=== PATIENT | male | born 1985 | race Caucasian/White ===

== ENCOUNTER 2019-04-01 14:41 | Observation (INO) ==
[2019-04-01] MEDS ORDERED: ZOFRAN INJ 4 MG VIAL IVP PRN (15:39)
[2019-04-01 16:25] VITALS: BMI 34.4
[2019-04-01 16:33] LABS: BASOPHILS # (AUTO) 0.1 X10^3/uL (0.0-0.1); BASOPHILS % (AUTO) 0.7 % (0.2-1.0); EOSINOPHILS # (AUTO) 0.1 x10^3/uL (0.0-0.2); EOSINOPHILS % (AUTO) 1.6 % (0.9-2.9); HEMATOCRIT 43.5 % (42.0-54.0); HEMOGLOBIN 15.2 g/dL (13.5-18.0); LYMPHOCYTES # (AUTO) 2.1 X10^3/uL (1.3-2.9); LYMPHOCYTES % (AUTO) 26.2 % (21.0-51.0); MEAN CORPUSCULAR HEMOGLOBIN 32.7 pg (27.0-34.0); MEAN CORPUSCULAR VOLUME 93.5 fL (80.0-100.0); MONOCYTES # (AUTO) 0.5 x10^3/uL (0.3-0.8); MONOCYTES % (AUTO) 6.2 % (0.0-13.0); NEUTROPHILS # (AUTO) 5.3 x10^3/uL (2.2-4.8); NEUTROPHILS % (AUTO) 65.3 % (42.0-75.0); PLATELET COUNT 304 X10^3/uL (150.0-450.0); RED BLOOD COUNT 4.66 X10^6/uL (4.7-6.0); RED CELL DISTRIBUTION WIDTH 13.3 % (11.6-16.5); WHITE BLOOD COUNT 8.1 X10^3/uL (3.6-10.0)
[2019-04-01 16:45] LABS: ALANINE AMINOTRANSFERASE 57 Units/L (12-78); ALBUMIN 4.1 g/dL (3.4-5.0); ALKALINE PHOSPHATASE 142 Units/L (46-116); AMYLASE 30 Units/L (25-115); ASPARTATE AMINO TRANSFERASE 21 Units/L (15-37); BLOOD UREA NITROGEN 11 mg/dL (7-18); CARBON DIOXIDE 29.7 mmol/L (21-32); CHLORIDE 98 mmol/L (98-107); CREATININE 1.37 mg/dL (0.70-1.30); LIPASE 107 Units/L (73-393); SODIUM 136 mmol/L (136-145); TOTAL PROTEIN 8.4 g/dL (6.4-8.2); eGFR NON BLACK RACES > 60 (>60)
[2019-04-01] MEDS: NS 1000 ML 1,000 ML IV SCH (17:01)
[2019-04-01] MEDS: PROTONIX INJ 40 MG VIAL IVP SCH (17:02)
[2019-04-01 17:59] LABS: BILIRUBIN,URINE NEGATIVE (NEGATIVE); BLOOD/HEMOGLOBIN,URINE 1+ (NEGATIVE); GLUCOSE, URINE NEGATIVE (NEGATIVE); KETONES,URINE NEGATIVE (NEGATIVE); LEUKOCYTE ESTERASE ,URINE NEGATIVE (NEGATIVE); NITRITES,URINE NEGATIVE (NEGATIVE); PROTEIN,URINE NEGATIVE (NEGATIVE); UROBILINOGEN,URINE NORMAL (NORMAL)
[2019-04-01 18:29] LABS: APPEARANCE,URINE CLEAR (CLEAR); BACTERIA,URINE NEGATIVE /HPF (NEGATIVE); COLOR,URINE YELLOW (YELLOW); RBC,URINE 0-2 /HPF (0-3); SQUAMOUS EPITHELIAL CELL,UR RARE /HPF (NEGATIVE)
--- NOTE | 2019-04-01 18:58 | DR.H&P ---
H&P - History & Physical for Day of: H&P Date: 04/01/19 - Chief Complaint Chief Complaint: RIGHT LOWER ABDOMINAL PAIN, N/V - History of Present Illness History of Present Illness: PT IS 34 WM DIRECT ADMIT FROM DR LINK OFFICE AFTER PRESENTING WITH CO RIGHT MID TO LOWER ABDOMINAL TENDERNESS, REBOUND TENDERNESS ON EXAM. PT WAS SEEN IN ER LAST WEEKEND WITH CO SUDDEN ONSET OF N/V AND PAIN IN CHEST. PT HAD CE AND EKG WITHOUT ACUTE FINDINGS. PT NOTED TO BE DEHYDRATION WITH ELEVATED CREAT LEVEL. PT NEGATIVE FOR UTI ON UA IN OFFICE. PT HAS PMH OF HTN. PT CP IN OFFICE 140/100. PT ADMITTED FOR TREATMENT OF ACUTE ABDOMINAL PAIN, DEHYDRATION, BP CONTROL - Past Medical History Past Medical History: Hypertension - Family History Family Medical History: Hypertension - Social History Does patient currently use any type of tobacco product: Yes (VAPES) Have you used tobacco products in the last 12 months: Yes Type of Tobacco Use: Cigarettes How many years tobacco product used: 10 Does any household member use tobacco: No Alcohol Use: Occasionally Drug Use: None - Medications Home Medications: No Known Drug Allergies Allergy (Verified 03/29/19 22:58) CONTINUE taking the following medications lisinopril 40 mg PO DAILY 04/01/19 [History] - Review of Systems Constitutional: Fever, Weakness Eyes: No Symptoms Reported ENT: No Symptoms Reported Respiratory: No Symptoms Reported Cardiovascular: No Symptoms Reported Gastrointestinal: Nausea, Vomiting, Abdominal Pain Genitourinary: denies: Frequency, Incontinence Musculoskeletal: No Symptoms Reported Skin: No Symptoms Reported Neurological: No Symptoms Reported - Physical Exam Vital Signs: Temperature 98.0 F Pulse Rate [Left Radial] 98 Respiratory Rate 20 Blood Pressure [Right Arm] 137/92 Blood Pressure [Left Arm] 110/71 Blood Pressure 110/71 O2 Sat by Pulse Oximetry 97 Oriented: Normal Ear: Normal Nose: Normal Throat: Normal, Dry Respiratory: Clear Throughout Cardiovascular: Normal : Normal Auscultation: Bowel Sounds: Normal Palpation: Spleen Enlarged Tenderness: RUQ, RLQ, Periumbilical Skin: Decreased Turgur Musculoskeletal: Normal Psychiatric: Anxiety Affect: Anxious Speech Pattern: Clear, Appropriate - Assessment/Plan (1) Abdominal pain Status: Acute Plan: ADMIT, IV HYDRATION. PAIN AND NAUSEA CONTROL. AMYLASE AND LIPASE. UA ON ADMISSION, CT ABD PELVIS WITH CONTRAST. PPI THERAPY, REPEAT AM LABS (2) Dehydration Status: Acute (3) Hypertension Status: Acute (4) Elevated liver enzymes Status: Acute - Allergies Allergies/Adverse Reactions: Allergies Allergy/AdvReac Type Severity Reaction Status Date / Time No Known Drug Allergies Allergy Verified 03/29/19 22:58
[2019-04-01] MEDS ORDERED: NORCO 5/325 MG TAB PO PRN (18:59)
[2019-04-01] MEDS ORDERED: NS 250 ML IV 250 ML IV PRN (20:02)
[2019-04-01] MEDS ORDERED: NS 250 ML IV 250 ML IV ONE (20:06)
[2019-04-01] MEDS: ZOSYN VIAL 3.375 GRAMS 3.375 G in NS 100 ML IV + SPIKE MINIBAG* 100 ML IV SCH ×2 (20:08→21:52)
[2019-04-02] MEDS: ZOSYN VIAL 3.375 GRAMS 3.375 G in NS 100 ML IV + SPIKE MINIBAG* 100 ML IV SCH ×3 (05:06→21:02)
[2019-04-02] MEDS: NS 1000 ML 1,000 ML IV SCH (06:02)
[2019-04-02] MEDS: PROTONIX INJ 40 MG VIAL IVP SCH (09:31)
[2019-04-02] MEDS: ZESTRIL TAB 40 MG PO SCH (09:53)
--- NOTE | 2019-04-02 11:02 | CT ---
HISTORYABD PAINSTUDYCT ABDOMEN/PELVIS WITH CONCOMPARISONNoneTECHNIQUEMultiple axial images of the abdomen and pelvis were obtained from the lung bases to the pubic symphysis following the administration of IV contrast. Dose reduction techniques including Automated Exposure Control (AEC) and adjustment of mA and kV were utilized.FINDINGSThe visualized portions of the lung bases are unremarkable .The liver and spleen display no abnormalities.Gallbladder appears normal. No biliary ductal dilation.No pancreatic abnormality is seen.The adrenal glands appear normal.No hydronephrosis or renal abnormality is seen. Ureters and bladder appear normal.No bowel abnormalities are seen. Mild periappendiceal inflammation is seen and appendix is mildly prominent measuring 9 millimeters in diameter. Findings suggest acute appendicitis.No abnormalities are seen of the reproductive organs.Abdominal aorta is normal in size.Shotty reactive mesenteric and retroperitoneal lymph nodes. Small likely reactive pelvic lymph nodes.No free intraperitoneal air or fluid is seen.No acute bony abnormality is seen. Small umbilical hernia containing fat. Mild fatty distention of the left inguinal canal.IMPRESSIONLikely mild acute appendicitis changes in the correct clinical setting. Correlation with region of abdominal pain is recommended.Electronically signed by: Carlo Campos (Apr 02, 2019 11:00:52)
[2019-04-02] MEDS ORDERED: FENTANYL INJ 250 mcg ONE (13:17)
[2019-04-02] MEDS ORDERED: BACTROBAN TOPICAL OINT ONE (13:59)
[2019-04-02] MEDS ORDERED: ANCEF 1 GRAM IV PREMIX* 2 G/100 ML BAG IV ONE (14:02)
[2019-04-02] MEDS ORDERED: REGLAN INJ 10 MG VIAL IVP PRN (14:41)
[2019-04-02] MEDS ORDERED: PHENERGAN INJ 25 MG IM PRN (14:41)
[2019-04-02] MEDS ORDERED: BENADRYL INJ 50 MG VIAL IVP PRN (14:41)
[2019-04-02] MEDS ORDERED: ZOFRAN INJ 4 MG VIAL IVP PRN (14:41)
[2019-04-02] MEDS ORDERED: DILAUDID INJ IVP PRN ×2 (14:41→14:46)
[2019-04-02] MEDS: D5 1/2 NS 1000 ML 1,000 ML IV SCH ×2 (14:54→22:01)
[2019-04-02] MEDS ORDERED: DILAUDID INJ ONE (14:55)
[2019-04-02] MEDS ORDERED: SUPRANE ONE (14:56)
[2019-04-02] MEDS ORDERED: QUELICIN (OR ANECTINE) ONE (14:56)
[2019-04-02] MEDS ORDERED: ROBINUL ONE (14:56)
[2019-04-02] MEDS ORDERED: NORCURON INJ 10 MG VIAL ONE (14:56)
[2019-04-02] MEDS ORDERED: ZOFRAN INJ 4 MG VIAL ONE (14:56)
[2019-04-02] MEDS ORDERED: DIPRIVAN VIAL ONE (14:56)
[2019-04-02] MEDS ORDERED: VERSED ONE (14:56)
[2019-04-02] MEDS ORDERED: TORADOL 30 MG VIAL ONE (14:56)
[2019-04-02] MEDS: MORPHINE SULFATE INJ 2 MG INJ IVP PRN (19:46)
[2019-04-03] MEDS: MORPHINE SULFATE INJ 2 MG INJ IVP PRN (01:19)
[2019-04-03] MEDS: ZOSYN VIAL 3.375 GRAMS 3.375 G in NS 100 ML IV + SPIKE MINIBAG* 100 ML IV SCH (05:05)
[2019-04-03] MEDS: D5 1/2 NS 1000 ML 1,000 ML IV SCH (06:02)
[2019-04-03 06:55] LABS: BASOPHILS % (AUTO) 0.8 % (0.2-1.0); EOSINOPHILS # (AUTO) 0.2 x10^3/uL (0.0-0.2); HEMATOCRIT 39.6 % (42.0-54.0); HEMOGLOBIN 13.6 g/dL (13.5-18.0); LYMPHOCYTES # (AUTO) 1.4 X10^3/uL (1.3-2.9); LYMPHOCYTES % (AUTO) 23.1 % (21.0-51.0); MEAN CORPUSCULAR HEMOGLOBIN 32.4 pg (27.0-34.0); MEAN CORPUSCULAR HGB CONC 34.2 g/dL (33.0-35.0); MEAN CORPUSCULAR VOLUME 94.6 fL (80.0-100.0); MEAN PLATELET VOLUME 7.3 fL (7.4-11.0); MONOCYTES # (AUTO) 0.4 x10^3/uL (0.3-0.8); MONOCYTES % (AUTO) 6.7 % (0.0-13.0); NEUTROPHILS # (AUTO) 3.9 x10^3/uL (2.2-4.8); NEUTROPHILS % (AUTO) 66.4 % (42.0-75.0); PLATELET COUNT 259 X10^3/uL (150.0-450.0); RED BLOOD COUNT 4.19 X10^6/uL (4.7-6.0); RED CELL DISTRIBUTION WIDTH 13.1 % (11.6-16.5); WHITE BLOOD COUNT 5.9 X10^3/uL (3.6-10.0)
[2019-04-03 08:24] VITALS: BP 97/52
[2019-04-03 09:05] LABS: ALANINE AMINOTRANSFERASE 69 Units/L (12-78); ALBUMIN 3.2 g/dL (3.4-5.0); ALKALINE PHOSPHATASE 118 Units/L (46-116); ASPARTATE AMINO TRANSFERASE 39 Units/L (15-37); BLOOD UREA NITROGEN 8 mg/dL (7-18); CALCIUM 8.4 mg/dL (8.5-10.1); CHLORIDE 103 mmol/L (98-107); CREATININE 1.28 mg/dL (0.70-1.30); SODIUM 137 mmol/L (136-145); TOTAL PROTEIN 6.3 g/dL (6.4-8.2); eGFR NON BLACK RACES > 60 (>60)
[2019-04-03] MEDS: ZESTRIL TAB 40 MG PO SCH (09:49)
[2019-04-03] MEDS: PROTONIX INJ 40 MG VIAL IVP SCH (09:50)
== END 2019-04-03 11:55 | disposition home or self-care (01) ==
LOC: MED/SURG
PROVIDERS: ADMIT Internal Medicine; ATTEND Internal Medicine
PROC: APPYLAP (ICD-10-PCS; 2019-04-02 13:45)
DX: E86.0 Dehydration; R11.2 Nausea with vomiting, unspecified; R94.4 Abnormal results of kidney function studies; Z79.899 Other long term (current) drug therapy; I10 Essential (primary) hypertension; K35.890 Other acute appendicitis without perforation or gangrene; R10.31 Right lower quadrant pain; R74.8 Abnormal levels of other serum enzymes
CPT/HCPCS: 36415; 74177; 80053; 81001; 82150; 83690; 85025; 96360; 96361; 96374; A4216; A4222; C9113; G0378; J0330; J0690; J1170; J1885; J2250; J2270; J2405; J2543; J2704; J3010; J3490; J7030; J7050; S5010

== ENCOUNTER 2024-01-30 13:10 | Observation (INO) ==
--- NOTE | 2024-01-30 13:40 | EKG ---
Test Reason : Dyspnea Blood Pressure : */* mmHG Vent. Rate : 98 BPM Atrial Rate : 98 BPM P-R Int : 170 ms QRS Dur : 94 ms QT Int : 348 ms P-R-T Axes : 44 -1 21 degrees QTc Int : 444 ms Normal sinus rhythm Possible Left atrial enlargement Borderline ECG When compared with ECG of 03-JAN-2024 10:54, No significant change was found Confirmed by Pierce Conner MD ([id number]) on 01/31/2024 11:50:45 AM Referred By: Confirmed By: Pierce Conner MD
[2024-01-30] MEDS ORDERED: NS 1,000 ML IV 1,000 ML ONE (13:41)
[2024-01-30] MEDS: NS 1,000 ML IV 1,000 ML IV SCH ×2 (13:47→19:59)
--- NOTE | 2024-01-30 14:06 | DR.WEAKNES ---
HPI Time Seen Time Seen by Provider: 01/30/24 13:26 Primary Care Physician Primary Care Physician: Sabine Elam WIRELESS TECHNICIAN Complaints Chief Complaint Doctors Comments: 38-year-old male, history of hypertension, opioid abuse, brought in by his for confusion, slurred speech and feeling groggy. Patient states that he took a gummy last night at 11 PM before going to bed that he got from a gas station, woke up today with the symptoms. Also admits to headache, dry mouth and mild dyspnea. Denies other complaints. Chief Complaint:: Patient's states that the patient was up late last night and took a gummy from a gas station to help him sleep. states that this morning the patient was very tired acting and was slow to respond when she was talking to her. She also reports that he seemed confused, and would slur his wor ds when responding. She states that the last time she saw him normal was last night before they went to bed. Source History Provided: Patient Mode of Arrival Mode of Arrival: Wheelchair Timing Onset of Chief Complaint: 01/30/24 Symptom Onset: Known (upon waking this am) Context Stroke Symptoms: Acute confusion PMH PMH Past Medical History: Yes Past Medical History: Anxiety, Depression and Hypertension Past Surgical History: Yes Surgical History: Cholecystectomy Family History History of Family Medical Conditions: Yes Family Medical History: Diabetes Mellitus and Hypertension Social History Does patient currently use any type of tobacco product: No Have you used tobacco products in the last 12 months: No Does any household member use tobacco: No Alcohol Use: None Do you use any recreational Drugs:: No Lives With: Family Lives Where: Home Travel Risk Coronavirus risk:travel/contact w/high risk person: No Has patient experienced Coronavirus symptoms: No Infectious screening In the last 2 months have you had wt loss of >10#?: NO Have you had fever, night sweats or hemotysis?: No Have you traveled outside the country in the last 6 months?: No Isolation: Standard ROS Review of Systems Constitutional: Other (confusion) Respiratoy: Short of Breath Neurological: Headache and Speech Problem (slurred) All Other Systems: Reviewed and Negative PE Vital Signs Vitals: Vital Signs Temperature 98.7 F Pulse Rate 75 Pulse Rate 75 Pulse Rate 73 Pulse Rate 86 Pulse Rate 74 Pulse Rate 74 Pulse Rate 77 Pulse Rate 78 Pulse Rate 80 Pulse Rate 99 Respiratory Rate 9 Respiratory Rate 8 Respiratory Rate 6 Respiratory Rate 10 Respiratory Rate 6 Respiratory Rate 7 Respiratory Rate 11 Respiratory Rate 10 Respiratory Rate 12 Respiratory Rate 18 Blood Pressure 130/71 Blood Pressure 132/74 Blood Pressure 129/72 Blood Pressure 121/72 Blood Pressure 132/72 Blood Pressure 155/87 Blood Pressure 155/87 Blood Pressure 155/87 Blood Pressure 133/83 Blood Pressure 133/83 Blood Pressure 147/86 O2 Sat by Pulse Oximetry 99 O2 Sat by Pulse Oximetry 99 O2 Sat by Pulse Oximetry 99 O2 Sat by Pulse Oximetry 98 O2 Sat by Pulse Oximetry 99 O2 Sat by Pulse Oximetry 98 O2 Sat by Pulse Oximetry 100 O2 Sat by Pulse Oximetry 99 O2 Sat by Pulse Oximetry 100 General Limitations: No Limitations General Appearance: Alert, In No Apparent Distress and Other (appears groggy, mild confusion, however A&Ox3) Head Head Exam: Normal Inspection Eyes Eye exam: Normal Appearance Eyelids: Normal Inspection: Bilateral Pupils: Regular, Round: Bilateral Sclera/Conjunctival: Normal Inspection: Bilateral Anterior Chamber: Normal Inspection: Bilateral ENT ENT Exam: Normal Exam Mouth Exam: Normal Inspection Throat Exam: Normal Inspection Neck Neck Exam: Normal Inspection Chest Chest Inspection: Normal Inspection Respiratory Respiratory Exam: Normal Lung Sounds Bilat Respiratory Exam: Bilateral: Clear to Auscultation Cardiovascular Cardiovascular Exam: Regular Rate and Normal Rhythm Extremities Extremities Exam: Normal Inspection Back Back Exam: Normal Inspection Neurologic Neurological Exam: Alert and Oriented X3 Speech: Expressive Aphasia Cranial Nerve Exam: EOM Function (II, III, IV, ): Normal, Facial Sensation (V): Normal, Facial Palsy (VII): Normal, Gag reflex (XI): Normal, Spinal Accessory Function (XI): Normal and Tongue Deviation: Normal Cerebellar Function: Finger to Nose: Normal Cerebellar Function: negative Truncal Ataxia Motor Strength - LUE: 5/5 Motor Strength - RUE: 5/5 Motor Strength - LLE: 5/5 Motor Strength - RLE: 5/5 Upper Motor Neuron Exam: Brdoy Neglect: Normal, Pronator Drift: Normal, Babinski Sign: Normal and Sensory Extinction: Normal Sensory Exam Upper Extremity: Light Touch: Normal Sensory Exam Lower Extremity: Light Touch: Normal Psychiatric Psychiatric Exam: Normal Affect and Normal Mood Skin Skin Exam: Warm, Dry, Intact and Normal Color COURSE Reevaluation 1st: Unchanged (on re-exam, pt remains groggy, wakes with mild stimulation, maintaining airway on room air, 99%O2, will admit for persistent confusion.) Consultation Called: 17:50 Call Returned: 17:50 Consultation Comments: Dr Mcdaniel agrees to admit. In addition, pt seen by teleneuro upon arrival, no indication for thrombolytic at this time. Admitting for encephalopathy. ROR Labs Reviewed 01/30/24 14:25 01/30/24 14:25 Laboratory: WBC 9.1 X10^3/uL (3.6-10.0) 01/30/24 14:25 RBC 4.24 X10^6/uL (4.7-6.0) L 01/30/24 14:25 Hgb 12.9 g/dL (13.5-18.0) L 01/30/24 14:25 Hct 36.8 % (42.0-54.0) L 01/30/24 14:25 MCV 86.8 fL (80.0-100.0) 01/30/24 14:25 MCH 30.4 pg (27.0-34.0) 01/30/24 14:25 MCHC 35.0 g/dL (33.0-35.0) 01/30/24 14:25 RDW 13.1 % (11.6-16.5) 01/30/24 14:25 Plt Count 291 X10^3/uL (150.0-450.0) 01/30/24 14:25 MPV 7.4 fL (7.4-11.0) 01/30/24 14:25 Neut % (Auto) 84.7 % (42.0-75.0) H 01/30/24 14:25 Lymph % (Auto) 8.6 % (21.0-51.0) L 01/30/24 14:25 [place] % (Auto) 5.9 % (0.0-13.0) 01/30/24 14:25 Eos % (Auto) 0.3 % (0.9-2.9) L 01/30/24 14:25 Baso % (Auto) 0.5 % (0.2-1.0) 01/30/24 14:25 Neut # (Auto) 7.7 x10^3/uL (2.2-4.8) H 01/30/24 14:25 Lymph # (Auto) 0.8 X10^3/uL (1.3-2.9) L 01/30/24 14:25 [place] # (Auto) 0.5 x10^3/uL (0.3-0.8) 01/30/24 14:25 Eos # (Auto) 0.0 x10^3/uL (0.0-0.2) 01/30/24 14:25 Baso # (Auto) 0.0 X10^3/uL (0.0-0.1) 01/30/24 14:25 Absolute Nucleated RBC 0.3 /100WBC 01/30/24 14:25 PT 14.2 SECONDS (11.8-14.3) 01/30/24 14:25 INR Target Range - 01/30/24 14:25 INR 1.13 (0.8-1.3) 01/30/24 14:25 Sodium 138 mmol/L (136-145) 01/30/24 14:25 Corrected Sodium 140 mmol/L (136-145) 01/30/24 14:25 Potassium 4.2 mmol/L (3.5-5.1) 01/30/24 14:25 Chloride 101 mmol/L (98-107) 01/30/24 14:25 Carbon Dioxide 28.5 mmol/L (21-32) 01/30/24 14:25 BUN 11 mg/dL (7-18) 01/30/24 14:25 Creatinine 1.29 mg/dL (0.70-1.30) 01/30/24 14:25 Est GFR (MDRD) Af Amer > 60 (>60) 01/30/24 14:25 Est GFR (MDRD) Non-Af > 60 (>60) 01/30/24 14:25 Glucose 168 mg/dL (65-99) H 01/30/24 14:25 Calcium 9.4 mg/dL (8.5-10.1) 01/30/24 14:25 Corrected Calcium TNP 01/30/24 14:25 Magnesium 1.9 mg/dL (2.0-2.9) L 01/30/24 14:25 Total Bilirubin 0.30 mg/dL (0.2-1.0) 01/30/24 14:25 AST 17 Units/L (15-37) 01/30/24 14:25 ALT 27 Units/L (12-78) 01/30/24 14:25 Alkaline Phosphatase 140 Units/L (46-116) H 01/30/24 14:25 Creatine Kinase 27 Units/L (39-308) L 01/30/24 14:25 Troponin I High Sens 5.3 ng/L (4.0-60.0) 01/30/24 14:25 Total Protein 7.8 g/dL (6.4-8.2) 01/30/24 14:25 Albumin 3.8 g/dL (3.4-5.0) 01/30/24 14:25 Globulin 4.0 g/dL (2.5-4.5) 01/30/24 14:25 Albumin/Globulin Ratio 1.0 Ratio (1.1-2.1) L 01/30/24 14:25 Specimen Type Catherized urine 01/30/24 15:07 Urine Color Yellow (YELLOW) 01/30/24 15:07 Urine Appearance Clear (CLEAR) 01/30/24 15:07 Urine pH 6.5 (5.0 - 8.0) 01/30/24 15:07 Ur Specific [place] 1.010 (1.000-1.030) 01/30/24 15:07 Urine Protein Negative (NEGATIVE) 01/30/24 15:07 Urine Glucose (UA) Negative (NEGATIVE) 01/30/24 15:07 Urine Ketones Negative (NEGATIVE) 01/30/24 15:07 Urine Blood Negative (NEGATIVE) 01/30/24 15:07 Urine Nitrite Negative (NEGATIVE) 01/30/24 15:07 Urine Bilirubin Negative (NEGATIVE) 01/30/24 15:07 Urine Urobilinogen Normal (NORMAL) 01/30/24 15:07 Ur Leukocyte Esterase Negative (NEGATIVE) 01/30/24 15:07 Urine Opiates Screen Negative (NEG=<300) 01/30/24 15:07 Urine Methadone Screen Negative (NEG=<300) 01/30/24 15:07 Ur Barbiturates Screen Negative (NEG=<200) 01/30/24 15:07 Ur Phencyclidine Scrn Negative (NEG=<25) 01/30/24 15:07 Ur Amphetamines Screen Negative (NEG=<1000) 01/30/24 15:07 U Benzodiazepines Scrn Negative (NEG=<200) 01/30/24 15:07 Urine Cocaine Screen Negative (NEG=<300) 01/30/24 15:07 U Marijuana (THC) Screen Positive (NEG=<50) A 01/30/24 15:07 Ethyl Alcohol mg/dL < 3 mg/dL (0-19.9) 01/30/24 14:25 Opioid Opioid Risk Tool Age (Shant box if 16-45): Yes History of Preadolescent Sexual Abuse: No Total: 1 Total Score Risk Category: Low Risk Copyright: Malik WHITE predicting aberrant behaviors Discharge Plan Diagnosis Discharge Problem: Encephalopathy Hospital Course Hospital Course: Evaluated by teleneurologist, who does not feel that the patient is having an acute stroke, or that he is a tPA candidate at this time. Discharge Plan Patient Disposition: ADMITTED INPATIENT Condition: Fair Prescriptions: No Action Vraylar 1.5 mg capsule 1.5 mg PO QDAY testosterone cypionate 200 mg/mL oil IM buprenorphine-naloxone [Suboxone] 8-2 mg film 1 film buccal Q24H Health Concerns: Post Hospitalization: new medications and changes needed to prevent readmission or further decline. Pt educated and given instructions on all concerns. Plan of Treatment: Continue with present treatment and follow up plan. Pt is to keep follow up appointment as instructed and take medications as ordered. Orders to Discharge Patient Discharge Orders: Transfer (Routine); Ordered 01/30/24 Ordered By: Lito Fowler Follow ups/Referrals Follow ups/Referrals: Sabine Elam [Primary Care Provider] - 3 days Instructions Stand Alone Forms: Find Help Web Site
--- NOTE | 2024-01-30 14:07 | CT ---
EXAMINATION:BRAIN W/O CONHISTORY:EXPRESSIVE APHASIA;COMPARISON:None.TECHNIQUE:Contig uous noncontrast axial CT images of the brain. Images reviewed in the axial imaging plane with reformatted sagittal and coronal images.The above CT scan was done with automated exposure control and the mA and kV was adjusted to obtain quality images according to patient size.FINDINGS:No evidence of acute intracranial hemorrhage, mass effect, or midline shift. Normal deal-white matter differentiation. Ventricles normal size and shape. Calvarium appears intact.IMPRESSION:No acute intracranial process seen. Recommend further evaluation with an MRI of the brain if this is of continued clinical concern.THIS IS AN ELECTRONICALLY VERIFIED FINAL [id number]/30/2024 2:03 PM - Electronically signed by Nicci Marshall MD
--- NOTE | 2024-01-30 14:22 | TELESTROKE ---
[facility] Consult Date of Consult Date of Exam: 01/30/24 Time of Arrival to the ED: 13:25 Allergies Allergies Allergy/AdvReac Type Severity Reaction Status Date / Time No Known Drug Allergies Allergy Verified 01/16/24 10:42 Vital Signs Vital Signs: Temp Pulse Resp BP Pulse Ox O2 Del Method 01/30/24 13:25 98.7 F 99 H 18 147/86 100 Room Air History of Present Illness History of Present Illness: [facility] Patient Name:Joby Prasad Date of :1985 Identification Number: Date of Service:01/30/2024 13:31:17 Diagnosis:R40.0 - Somnolence Impression: 38yoM hx of sleep paralysis, anxiety/depression, bipolar disorder, HTN, gallbladder surgery 2 weeks ago found with lethargy, slurred speech, and disorientation this morning. CT head neg for acute finding. On exam patient has possible mild right nasolabial flattening, equal drift in BLE, dysarthria, and appeared somnolent. No aphasia, VF deficit, or ataxia noted. DDx includes encephalopathy due to infection/metabolic/ substance. Unable to rule out CVA though less likely without focal deficit. Recommend encephalopathy workup, check UDS and EtOH level. If unrevealing and patient is not improving, consider MR brain w/wo and routine EEG Our recommendations are outlined below. Recommendations: Stroke/Telemetry Floor Neuro Checks Bedside Swallow Eval DVT Prophylaxis IV Fluids, Normal Saline Head of Bed 30 Degrees Euglycemia and Avoid Hyperthermia (PRN Acetaminophen) Sign Out: Discussed with Emergency Department Provider Advanced Imaging: Advanced Imaging Deferred because: Non-disabling symptoms as verified by the patient; no cortical signs so not consistent with LVO Metrics: Last Known Well: 01/29/2024 23:30:00 Dispatch Time: 01/30/2024 13:31:17 Arrival Time: 01/30/2024 13:25:00 Initial Response Time: 01/30/2024 13:33:31Symptoms: lethargy . Initial patient interaction: 01/30/2024 13:35:35 NIHSS Assessment Completed: 01/30/2024 13:42:52Patient is not a candidate for Thrombolytic. Thrombolytic Medical Decision: 01/30/2024 13:56:23Patient was not deemed candidate for Thrombolytic because of following reasons: LKW outside 4.5 hr window. . I personally Reviewed the CT Head and it Showed no hemorrhage Primary Provider Notified of Diagnostic Impression and Management Plan on: 01/30/2024 14:03:27 History of Present Illness:Patient is a 38 year old Male. Patient was brought by private transportation with symptoms of lethargy . confirmed that last time patient was normal was last night before bed. Patient occasional takes gummy from [employer] to help with sleep. He took a gummy yesterday, had the same one recently. This morning noticed he was more drowsy than usual. At first attribute to his sleep paralysis. Gave him a bottle of 5-hr energy drink. Patient continued to be drowsy and slurred speech and was stumbling when he walks, appear disoriented. reports patient is in alcohol recovery, last use was 2 years ago. He had brief relapse with opiate but has been clean. Only took tylenol after his gallbladder surgery. She denies concern for alcohol or opiate use. Past Medical History: Hypertension Other PMH: sleep paralysis, anxiety/depression, bipolar disorder, HTN. Had gallbladder surgery 2 weeks ago. Medications: No Anticoagulant use No Antiplatelet use Reviewed EMR for current medications Other Medications Pertinent To Assessment Include: testosterone Allergies: Reviewed,NKDA Social History: Smoking: No Alcohol Use: Former Drug Use: Former Family History: There is no family history of premature cerebrovascular disease pertinent to this consultation ROS : 14 Points Review of Systems was performed and was negative except mentioned in HPI. Past Surgical History: There Is No Surgical History Contributory To Todays Visit Examination: BP(147/86),Pulse(99), 1A: Level of Consciousness - Arouses to minor stimulation+ 1 1B: Ask Month and Age - Both Questions Right+ 0 1C: Blink Eyes & Squeeze Hands - Performs Both Tasks+ 0 2: Test Horizontal Extraocular Movements - Normal+ 0 3: Test Visual Andrew - No Visual Loss+ 0 4: Test Facial Palsy (Use Grimace if Obtunded) - Minor paralysis (flat nasolabial fold, smile asymmetry)+ 1 5A: Test Left Arm Motor Drift - No Drift for 10 Seconds+ 0 5B: Test Right Arm Motor Drift - No Drift for 10 Seconds+ 0 6A: Test Left Leg Motor Drift - Drift, but doesn't hit bed+ 1 6B: Test Right Leg Motor Drift - Drift, but doesn't hit bed+ 1 7: Test Limb Ataxia (FNF/Heel-Perez) - No Ataxia+ 0 8: Test Sensation - Normal; No sensory loss+ 0 9: Test Language/Aphasia - Normal; No aphasia+ 0 10: Test Dysarthria - Mild-Moderate Dysarthria: Slurring but can be understood+ 1 11: Test Extinction/Inattention - No abnormality+ 0 NIHSS Score:5 NIHSS Free Text :right nasolabial flattening Pre-Morbid Modified [place] Scale:0 Points = No symptoms at all Spoke with :Dr. Fowler This consult was conducted in real time using interactive audio and video technology. Patient was informed of the technology being used for this visit and agreed to proceed. Patient located in hospital and provider located at home/office setting. Patient is being evaluated for possible acute neurologic impairment and high probability of imminent or life-threatening deterioration. I spent total of 35 minutes providing care to this patient, including time for face to face visit via telemedicine, review of medical records, imaging studies and discussion of findings with providers, the patient and/or family. Dr Marely Adame [facility] For Inpatient follow-up with [facility] physician please call [facility] at . As we are not an outpatient service for any post hospital discharge needs please contact the hospital for assistance. If you have any questions for the [facility] physicians or need to reconsult for clinical or diagnostic changes please contact us via [facility] at .
[2024-01-30 14:41] LABS: HEMOGLOBIN 12.9 g/dL (13.5-18.0); MEAN PLATELET VOLUME 7.4 fL (7.4-11.0)
[2024-01-30 14:44] LABS: INR 1.13 (0.8-1.3)
[2024-01-30 14:48] LABS: ALANINE AMINOTRANSFERASE 27 Units/L (12-78); ALBUMIN 3.8 g/dL (3.4-5.0); ALKALINE PHOSPHATASE 140 Units/L (46-116); ASPARTATE AMINO TRANSFERASE 17 Units/L (15-37); BASOPHILS % (AUTO) 0.5 % (0.2-1.0); BLOOD ALCOHOL < 3 mg/dL (0-19.9); BLOOD UREA NITROGEN 11 mg/dL (7-18); CALCIUM 9.4 mg/dL (8.5-10.1); CARBON DIOXIDE 28.5 mmol/L (21-32); CHLORIDE 101 mmol/L (98-107); COR NA(FOR HYPERGLY) 140 mmol/L (136-145); CREATINE KINASE 27 Units/L (39-308); CREATININE 1.29 mg/dL (0.70-1.30); EOSINOPHILS % (AUTO) 0.3 % (0.9-2.9); GLUCOSE 168 mg/dL (65-99); HEMATOCRIT 36.8 % (42.0-54.0); LYMPHOCYTES # (AUTO) 0.8 X10^3/uL (1.3-2.9); LYMPHOCYTES % (AUTO) 8.6 % (21.0-51.0); MAGNESIUM 1.9 mg/dL (2.0-2.9); MEAN CORPUSCULAR HEMOGLOBIN 30.4 pg (27.0-34.0); MEAN CORPUSCULAR VOLUME 86.8 fL (80.0-100.0); MONOCYTES # (AUTO) 0.5 x10^3/uL (0.3-0.8); MONOCYTES % (AUTO) 5.9 % (0.0-13.0); NEUTROPHILS # (AUTO) 7.7 x10^3/uL (2.2-4.8); NEUTROPHILS % (AUTO) 84.7 % (42.0-75.0); PLATELET COUNT 291 X10^3/uL (150.0-450.0); POTASSIUM 4.2 mmol/L (3.5-5.1); RED BLOOD COUNT 4.24 X10^6/uL (4.7-6.0); RED CELL DISTRIBUTION WIDTH 13.1 % (11.6-16.5); SODIUM 138 mmol/L (136-145); TOTAL PROTEIN 7.8 g/dL (6.4-8.2); WHITE BLOOD COUNT 9.1 X10^3/uL (3.6-10.0); eGFR NON BLACK RACES > 60 (>60)
[2024-01-30 15:14] LABS: BILIRUBIN,URINE NEGATIVE (NEGATIVE); BLOOD/HEMOGLOBIN,URINE NEGATIVE (NEGATIVE); GLUCOSE, URINE NEGATIVE (NEGATIVE); KETONES,URINE NEGATIVE (NEGATIVE); LEUKOCYTE ESTERASE ,URINE NEGATIVE (NEGATIVE); NITRITES,URINE NEGATIVE (NEGATIVE); PH,URINE 6.5 (5.0 - 8.0); PROTEIN,URINE NEGATIVE (NEGATIVE); UROBILINOGEN,URINE NORMAL (NORMAL)
[2024-01-30 15:20] LABS: APPEARANCE,URINE CLEAR (CLEAR); COLOR,URINE YELLOW (YELLOW)
[2024-01-30 21:37] VITALS: BMI 24.5
--- NOTE | 2024-01-30 23:07 | RAD ---
EXAM:CHEST, 1 VIEWHISTORY:EXPRESSIVE APHASIA;COMPARISON:01/03/2024FINDINGS:Th e trachea is midline. The cardiac silhouette is unremarkable . The lungs are clear without focal infiltrate or effusion. The bony thorax is unremarkable.IMPRESSION:Normal chestTHIS IS AN ELECTRONICALLY VERIFIED FINAL [id number]/30/2024 11:04 PM - Electronically signed by Cory Simon MD
[2024-01-31 01:51] LABS: BASOPHILS # (AUTO) 0.1 X10^3/uL (0.0-0.1); BASOPHILS % (AUTO) 0.7 % (0.2-1.0); EOSINOPHILS # (AUTO) 0.3 x10^3/uL (0.0-0.2); EOSINOPHILS % (AUTO) 3.7 % (0.9-2.9); HEMATOCRIT 37.2 % (42.0-54.0); HEMOGLOBIN 12.8 g/dL (13.5-18.0); LYMPHOCYTES # (AUTO) 2.2 X10^3/uL (1.3-2.9); LYMPHOCYTES % (AUTO) 29.7 % (21.0-51.0); MEAN CORPUSCULAR HEMOGLOBIN 30.2 pg (27.0-34.0); MEAN CORPUSCULAR HGB CONC 34.5 g/dL (33.0-35.0); MEAN CORPUSCULAR VOLUME 87.4 fL (80.0-100.0); MEAN PLATELET VOLUME 7.4 fL (7.4-11.0); MONOCYTES # (AUTO) 0.5 x10^3/uL (0.3-0.8); MONOCYTES % (AUTO) 6.3 % (0.0-13.0); NEUTROPHILS # (AUTO) 4.4 x10^3/uL (2.2-4.8); NEUTROPHILS % (AUTO) 59.6 % (42.0-75.0); PLATELET COUNT 303 X10^3/uL (150.0-450.0); RED BLOOD COUNT 4.25 X10^6/uL (4.7-6.0); RED CELL DISTRIBUTION WIDTH 13.2 % (11.6-16.5); WHITE BLOOD COUNT 7.4 X10^3/uL (3.6-10.0)
[2024-01-31 02:05] LABS: ALANINE AMINOTRANSFERASE 24 Units/L (12-78); ALBUMIN 3.7 g/dL (3.4-5.0); ALKALINE PHOSPHATASE 136 Units/L (46-116); ASPARTATE AMINO TRANSFERASE 14 Units/L (15-37); BLOOD UREA NITROGEN 7 mg/dL (7-18); CALCIUM 9.5 mg/dL (8.5-10.1); CARBON DIOXIDE 28.1 mmol/L (21-32); CHLORIDE 107 mmol/L (98-107); CREATININE 1.02 mg/dL (0.70-1.30); GLUCOSE 104 mg/dL (65-99); POTASSIUM 4.2 mmol/L (3.5-5.1); SODIUM 144 mmol/L (136-145); TOTAL PROTEIN 7.7 g/dL (6.4-8.2); eGFR NON BLACK RACES > 60 (>60)
[2024-01-31] MEDS ORDERED: ZOFRAN INJ 4 MG VIAL IVP PRN (10:05)
--- NOTE | 2024-01-31 12:35 | DR.H&P ---
H&P History & Physical for Day of: H&P Date: 01/31/24 Chief Complaint Chief Complaint: delirium History of Present Illness History of Present Illness: Patient seen for initial visit with nurse and spouse at bedside. Spouse reports that he was in his usual state of health 2 nights ago when he took a gas station CBD gummy to help him sleep. Noticed yesterday morning that he was not acting right. Brought to the hospital and found to have a benign UDS other than THC positive along with relatively benign labs and vitals. Admitted overnight due to suspected intoxication from THC due to unintentional overdose. Does have history of opioid addiction with unintentional overdose earlier this year with fentanyl. Patient and spouse deny any other illicit drug use at this time. He reports he is compliant with his Suboxone treatment. Of note he did have a cholecystectomy 2 weeks ago and has been dealing with nausea, anorexia, and constipation since that time. They both deny fever, chills, rash, headache, vision changes, hearing loss, or diarrhea over the last 2 weeks. Reports belly pain is better other than the nausea and feelings of constipation. PMH: OUD, male hypogonadism PSH: Lap chang Social: Admits to opioid addiction with no use in greater than 30 days. Denies tobacco or alcohol use. Does admit to marijuana/THC usage. ROS: 12 point ROS otherwise negative except per HPI. Vitals, labs, imaging: Reviewed PE: WD, WN male in NAD. He is somnolent but easily aroused. Hearing intact co nversation. Head NCAT. Nares patent. Neck with F ROM, supple, no adenopathy. Heart regular rate and rhythm. Lungs clear with shallow respirations. There is no snoring. Belly soft, nondistended, nontender, with hypoactive bowel sounds. Right arm is edematous around wraps. Good range of motion of all extremities. Poor effort. Past Medical History Past Medical History: Anxiety, Depression and Hypertension Past Surgical History Surgical History: Appendectomy and Cholecystectomy Family History Family Medical History: Diabetes Mellitus and Hypertension Social History Does patient currently use any type of tobacco product: No Have you used tobacco products in the last 12 months: No Does any household member use tobacco: No Alcohol Use: None Drug Use: Marijuana Medications Home Medications: Home Medications Medication Instructions Recorded Confirmed Type buprenorphine 8 mg-naloxone 2 mg 1 film buccal Q24H 12/19/23 01/30/24 History sublingual film (Suboxone) cariprazine 1.5 mg capsule 1.5 mg PO QDAY 12/19/23 01/30/24 History (Vraylar) testosterone cypionate 200 mg/mL 200 mg IM Q2W 12/19/23 01/30/24 History intramuscular oil atomoxetine 80 mg capsule 80 mg PO QAM 01/30/24 01/30/24 History nebivolol 10 mg tablet 10 mg PO QDAY 01/30/24 01/30/24 History Allergies Allergies Allergy/AdvReac Type Severity Reaction Status Date / Time No Known Drug Allergies Allergy Verified 01/16/24 10:42 Labs 01/31/24 01:30 01/31/24 01:30 Labs: Laboratory WBC 7.4 X10^3/uL (3.6-10.0) 01/31/24 01:30 RBC 4.25 X10^6/uL (4.7-6.0) L 01/31/24 01:30 Hgb 12.8 g/dL (13.5-18.0) L 01/31/24 01:30 Hct 37.2 % (42.0-54.0) L 01/31/24 01:30 MCV 87.4 fL (80.0-100.0) 01/31/24 01:30 MCH 30.2 pg (27.0-34.0) 01/31/24 01:30 MCHC 34.5 g/dL (33.0-35.0) 01/31/24 01:30 RDW 13.2 % (11.6-16.5) 01/31/24 01:30 Plt Count 303 X10^3/uL (150.0-450.0) 01/31/24 01:30 MPV 7.4 fL (7.4-11.0) 01/31/24 01:30 Neut % (Auto) 59.6 % (42.0-75.0) 01/31/24 01:30 Lymph % (Auto) 29.7 % (21.0-51.0) 01/31/24 01:30 [place] % (Auto) 6.3 % (0.0-13.0) 01/31/24 01:30 Eos % (Auto) 3.7 % (0.9-2.9) H 01/31/24 01:30 Baso % (Auto) 0.7 % (0.2-1.0) 01/31/24 01:30 Neut # (Auto) 4.4 x10^3/uL (2.2-4.8) 01/31/24 01:30 Lymph # (Auto) 2.2 X10^3/uL (1.3-2.9) 01/31/24 01:30 [place] # (Auto) 0.5 x10^3/uL (0.3-0.8) 01/31/24 01:30 Eos # (Auto) 0.3 x10^3/uL (0.0-0.2) H 01/31/24 01:30 Baso # (Auto) 0.1 X10^3/uL (0.0-0.1) 01/31/24 01:30 Absolute Nucleated RBC 0.1 /100WBC 01/31/24 01:30 PT 14.2 SECONDS (11.8-14.3) 01/30/24 14:25 INR Target Range - 01/30/24 14:25 INR 1.13 (0.8-1.3) 01/30/24 14:25 Sodium 144 mmol/L (136-145) 01/31/24 01:30 Sodium Cancelled 01/31/24 01:30 Corrected Sodium Cancelled 01/31/24 01:30 Corrected Sodium TNP 01/31/24 01:30 Potassium 4.2 mmol/L (3.5-5.1) 01/31/24 01:30 Potassium Cancelled 01/31/24 01:30 Chloride 107 mmol/L (98-107) 01/31/24 01:30 Chloride Cancelled 01/31/24 01:30 Carbon Dioxide 28.1 mmol/L (21-32) 01/31/24 01:30 Carbon Dioxide Cancelled 01/31/24 01:30 BUN 7 mg/dL (7-18) 01/31/24 01:30 BUN Cancelled 01/31/24 01:30 Creatinine 1.02 mg/dL (0.70-1.30) 01/31/24 01:30 Creatinine Cancelled 01/31/24 01:30 Est GFR (MDRD) Af Amer > 60 (>60) 11/29/24 01:30 Est GFR (MDRD) Af Amer Cancelled 01/31/24 01:30 Est GFR (MDRD) Non-Af > 60 (>60) 01/31/24 01:30 Est GFR (MDRD) Non-Af Cancelled 01/31/24 01:30 Glucose 104 mg/dL (65-99) H 01/31/24 01:30 Glucose Cancelled 01/31/24 01:30 Calcium 9.5 mg/dL (8.5-10.1) 01/31/24 01:30 Calcium Cancelled 01/31/24 01:30 Corrected Calcium Cancelled 01/31/24 01:30 Corrected Calcium TNP 01/31/24 01:30 Magnesium 2.1 mg/dL (2.0-2.9) 01/31/24 01:30 Total Bilirubin 0.50 mg/dL (0.2-1.0) 01/31/24 01:30 Total Bilirubin Cancelled 01/31/24 01:30 AST 14 Units/L (15-37) L 01/31/24 01:30 AST Cancelled 01/31/24 01:30 ALT 24 Units/L (12-78) 01/31/24 01:30 ALT Cancelled 01/31/24 01:30 Alkaline Phosphatase 136 Units/L (46-116) H 01/31/24 01:30 Alkaline Phosphatase Cancelled 01/31/24 01:30 Creatine Kinase 34 Units/L (39-308) L 01/30/24 19:46 Troponin I High Sens 5.3 ng/L (4.0-60.0) 01/31/24 01:30 Total Protein 7.7 g/dL (6.4-8.2) 01/31/24 01:30 Total Protein Cancelled 01/31/24 01:30 Albumin 3.7 g/dL (3.4-5.0) 01/31/24 01:30 Albumin Cancelled 01/31/24 01:30 Globulin 4.0 g/dL (2.5-4.5) 01/31/24 01:30 Globulin Cancelled 01/31/24 01:30 Albumin/Globulin Ratio 0.9 Ratio (1.1-2.1) L 01/31/24 01:30 Albumin/Globulin Ratio Cancelled 01/31/24 01:30 Specimen Type Catherized urine 01/30/24 15:07 Urine Color Yellow (YELLOW) 01/30/24 15:07 Urine Appearance Clear (CLEAR) 01/30/24 15:07 Urine pH 6.5 (5.0 - 8.0) 01/30/24 15:07 Ur Specific [place] 1.010 (1.000-1.030) 01/30/24 15:07 Urine Protein Negative (NEGATIVE) 01/30/24 15:07 Urine Glucose (UA) Negative (NEGATIVE) 01/30/24 15:07 Urine Ketones Negative (NEGATIVE) 01/30/24 15:07 Urine Blood Negative (NEGATIVE) 01/30/24 15:07 Urine Nitrite Negative (NEGATIVE) 01/30/24 15:07 Urine Bilirubin Negative (NEGATIVE) 01/30/24 15:07 Urine Urobilinogen Normal (NORMAL) 01/30/24 15:07 Ur Leukocyte Esterase Negative (NEGATIVE) 01/30/24 15:07 Urine Opiates Screen Negative (NEG=<300) 01/30/24 15:07 Urine Methadone Screen Negative (NEG=<300) 01/30/24 15:07 Ur Barbiturates Screen Negative (NEG=<200) 01/30/24 15:07 Ur Phencyclidine Scrn Negative (NEG=<25) 01/30/24 15:07 Ur Amphetamines Screen Negative (NEG=<1000) 01/30/24 15:07 U Benzodiazepines Scrn Negative (NEG=<200) 01/30/24 15:07 Urine Cocaine Screen Negative (NEG=<300) 01/30/24 15:07 U Marijuana (THC) Screen Positive (NEG=<50) A 01/30/24 15:07 Ethyl Alcohol mg/dL < 3 mg/dL (0-19.9) 01/30/24 14:25 Physical Exam Vital Signs: Vital Signs Temperature 97.6 F Temperature 98 F Pulse Rate [Right Brachial] 61 Pulse Rate [Right Brachial] 59 Respiratory Rate 19 Respiratory Rate 14 Blood Pressure [Left Arm] 109/60 Blood Pressure [Left Arm] 107/66 O2 Sat by Pulse Oximetry 98 O2 Sat by Pulse Oximetry 98 Assessment/Plan (1) Encephalopathy: Qualifiers: Encephalopathy type: toxic Toxic encephalopathy cause: unspecified toxin Qualified Code(s): G92.9 - Unspecified toxic encephalopathy Narrative Support Text: Suspect toxic encephalopathy secondary to THC usage. Will get a KUB along with ammonia level. Likely will give him lactulose regardless to see if we get his bowels moving. Continue IV fluids and close monitoring for now. Status: Acute (2) Status post laparoscopic cholecystectomy: Narrative Support Text: See above. Seems to be doing well other than some lingering constipation that is the likely source of his nausea. May be THC-induced nausea. Status: Acute
[2024-02-01 04:24] VITALS: O2SAT 100
[2024-02-01 06:01] LABS: BASOPHILS % (AUTO) 0.7 % (0.2-1.0); EOSINOPHILS # (AUTO) 0.2 x10^3/uL (0.0-0.2); EOSINOPHILS % (AUTO) 3.3 % (0.9-2.9); HEMATOCRIT 31.8 % (42.0-54.0); HEMOGLOBIN 11.1 g/dL (13.5-18.0); LYMPHOCYTES # (AUTO) 2.7 X10^3/uL (1.3-2.9); LYMPHOCYTES % (AUTO) 43.9 % (21.0-51.0); MEAN CORPUSCULAR HEMOGLOBIN 30.6 pg (27.0-34.0); MEAN CORPUSCULAR HGB CONC 34.9 g/dL (33.0-35.0); MEAN CORPUSCULAR VOLUME 87.6 fL (80.0-100.0); MEAN PLATELET VOLUME 7.8 fL (7.4-11.0); MONOCYTES # (AUTO) 0.5 x10^3/uL (0.3-0.8); MONOCYTES % (AUTO) 8.5 % (0.0-13.0); NEUTROPHILS # (AUTO) 2.7 x10^3/uL (2.2-4.8); NEUTROPHILS % (AUTO) 43.6 % (42.0-75.0); PLATELET COUNT 220 X10^3/uL (150.0-450.0); RED BLOOD COUNT 3.63 X10^6/uL (4.7-6.0); RED CELL DISTRIBUTION WIDTH 13.4 % (11.6-16.5); WHITE BLOOD COUNT 6.2 X10^3/uL (3.6-10.0)
[2024-02-01 06:27] LABS: ALANINE AMINOTRANSFERASE 19 Units/L (12-78); ALBUMIN 2.9 g/dL (3.4-5.0); ALKALINE PHOSPHATASE 101 Units/L (46-116); ASPARTATE AMINO TRANSFERASE 11 Units/L (15-37); BLOOD UREA NITROGEN 12 mg/dL (7-18); CALCIUM 8.7 mg/dL (8.5-10.1); CARBON DIOXIDE 30.4 mmol/L (21-32); CHLORIDE 110 mmol/L (98-107); COR CA(FOR HYPOALB) 9.6 mg/dL (8.5-10.1); CREATININE 1.11 mg/dL (0.70-1.30); GLUCOSE 87 mg/dL (65-99); POTASSIUM 4.1 mmol/L (3.5-5.1); SODIUM 147 mmol/L (136-145); TOTAL PROTEIN 6.2 g/dL (6.4-8.2); eGFR NON BLACK RACES > 60 (>60)
--- NOTE | 2024-02-01 07:28 | RAD ---
EXAM:KUBHISTORY:Pain constipationCOMPARISON:CT abdomen 04/02/2019FINDINGS:There is significant increase in fecal burden with fecal dilatation of the colon. There is no definite intestinal obstruction, mass, visceral enlargement or calcification. Surgical clips/cholecystectomy.IMPRESSION:Marked fecal retention consistent with constipation.THIS IS AN ELECTRONICALLY VERIFIED FINAL [id number]/01/2024 7:25 AM - Electronically signed by Rusty Mackey MD
[2024-02-01 11:57] VITALS: BP 121/77; PULSE 60; RESP 6; TEMP 97.9
[2024-02-01] MEDS: COLACE CAP 100 MG PO SCH (12:02)
[2024-02-01] MEDS: MILK OF MAGNESIA PO SCH (12:02)
[2024-02-01] MEDS: COLACE CAP 100 MG PO ONE (12:16)
[2024-02-01] MEDS: MILK OF MAGNESIA PO ONE (12:16)
--- NOTE | 2024-02-03 08:31 | PCM.DCPLAN ---
DISCHARGE SUMMARY Admission Date Date of Admission: 01/30/24 Discharge Date Discharge Date: 02/01/24 Admission Diagnoses (1) Encephalopathy: Status: Acute (2) Status post laparoscopic cholecystectomy: Status: Acute (3) Constipated: Status: Acute (4) Chronic narcotic dependence: Status: Chronic Discharge Medications Discharge Medications: Home Medication List atomoxetine 80 mg capsule 80 mg PO QAM 01/30/24 [History] nebivolol 10 mg tablet 10 mg PO QDAY 01/30/24 [History] Prescriptions: Hospital Course Vital Signs: Vital Signs Temperature 98.6 F Pulse Rate [Right Brachial] 75 Respiratory Rate 15 Blood Pressure [Left Arm] 117/70 O2 Sat by Pulse Oximetry 100 Latest Lab Results: Laboratory Last Values WBC 6.2 X10^3/uL (3.6-10.0) 02/01/24 05:27 RBC 3.63 X10^6/uL (4.7-6.0) L 02/01/24 05:27 Hgb 11.1 g/dL (13.5-18.0) L 02/01/24 05:27 Hct 31.8 % (42.0-54.0) L 02/01/24 05:27 MCV 87.6 fL (80.0-100.0) 02/01/24 05:27 MCH 30.6 pg (27.0-34.0) 02/01/24 05:27 MCHC 34.9 g/dL (33.0-35.0) 02/01/24 05:27 RDW 13.4 % (11.6-16.5) 02/01/24 05:27 Plt Count 220 X10^3/uL (150.0-450.0) 02/01/24 05:27 MPV 7.8 fL (7.4-11.0) 02/01/24 05:27 Neut % (Auto) 43.6 % (42.0-75.0) 02/01/24 05:27 Lymph % (Auto) 43.9 % (21.0-51.0) 02/01/24 05:27 [place] % (Auto) 8.5 % (0.0-13.0) 02/01/24 05:27 Eos % (Auto) 3.3 % (0.9-2.9) H 02/01/24 05:27 Baso % (Auto) 0.7 % (0.2-1.0) 02/01/24 05:27 Neut # (Auto) 2.7 x10^3/uL (2.2-4.8) 02/01/24 05:27 Lymph # (Auto) 2.7 X10^3/uL (1.3-2.9) 02/01/24 05:27 [place] # (Auto) 0.5 x10^3/uL (0.3-0.8) 02/01/24 05:27 Eos # (Auto) 0.2 x10^3/uL (0.0-0.2) 02/01/24 05:27 Baso # (Auto) 0.0 X10^3/uL (0.0-0.1) 02/01/24 05:27 Absolute Nucleated RBC 0.1 /100WBC 02/01/24 05:27 PT 14.2 SECONDS (11.8-14.3) 01/30/24 14:25 INR Target Range - 01/30/24 14:25 INR 1.13 (0.8-1.3) 01/30/24 14:25 Sodium 147 mmol/L (136-145) H 02/01/24 05:27 Corrected Sodium TNP 02/01/24 05:27 Potassium 4.1 mmol/L (3.5-5.1) 02/01/24 05:27 Chloride 110 mmol/L (98-107) H 02/01/24 05:27 Carbon Dioxide 30.4 mmol/L (21-32) 02/01/24 05:27 BUN 12 mg/dL (7-18) 02/01/24 05:27 Creatinine 1.11 mg/dL (0.70-1.30) 02/01/24 05:27 Est GFR (MDRD) Af Amer > 60 (>60) 02/01/24 05:27 Est GFR (MDRD) Non-Af > 60 (>60) 02/01/24 05:27 Glucose 87 mg/dL (65-99) 02/01/24 05:27 Calcium 8.7 mg/dL (8.5-10.1) 02/01/24 05:27 Corrected Calcium 9.6 mg/dL (8.5-10.1) 02/01/24 05:27 Magnesium 2.1 mg/dL (2.0-2.9) 01/31/24 01:30 Total Bilirubin 0.20 mg/dL (0.2-1.0) 02/01/24 05:27 AST 11 Units/L (15-37) L 02/01/24 05:27 ALT 19 Units/L (12-78) 02/01/24 05:27 Alkaline Phosphatase 101 Units/L (46-116) 02/01/24 05:27 Ammonia 24 umol/L (11-32) 01/31/24 13:05 Creatine Kinase 22 Units/L (39-308) L 01/31/24 13:05 Troponin I High Sens 5.3 ng/L (4.0-60.0) 01/31/24 01:30 Total Protein 6.2 g/dL (6.4-8.2) L 02/01/24 05:27 Albumin 2.9 g/dL (3.4-5.0) L 02/01/24 05:27 Globulin 3.3 g/dL (2.5-4.5) 02/01/24 05:27 Albumin/Globulin Ratio 0.9 Ratio (1.1-2.1) L 02/01/24 05:27 Specimen Type Catherized urine 01/30/24 15:07 Urine Color Yellow (YELLOW) 01/30/24 15:07 Urine Appearance Clear (CLEAR) 01/30/24 15:07 Urine pH 6.5 (5.0 - 8.0) 01/30/24 15:07 Ur Specific [place] 1.010 (1.000-1.030) 01/30/24 15:07 Urine Protein Negative (NEGATIVE) 01/30/24 15:07 Urine Glucose (UA) Negative (NEGATIVE) 01/30/24 15:07 Urine Ketones Negative (NEGATIVE) 01/30/24 15:07 Urine Blood Negative (NEGATIVE) 01/30/24 15:07 Urine Nitrite Negative (NEGATIVE) 01/30/24 15:07 Urine Bilirubin Negative (NEGATIVE) 01/30/24 15:07 Urine Urobilinogen Normal (NORMAL) 01/30/24 15:07 Ur Leukocyte Esterase Negative (NEGATIVE) 01/30/24 15:07 Urine Opiates Screen Negative (NEG=<300) 01/30/24 15:07 Urine Methadone Screen Negative (NEG=<300) 01/30/24 15:07 Ur Barbiturates Screen Negative (NEG=<200) 01/30/24 15:07 Ur Phencyclidine Scrn Negative (NEG=<25) 01/30/24 15:07 Ur Amphetamines Screen Negative (NEG=<1000) 01/30/24 15:07 U Benzodiazepines Scrn Negative (NEG=<200) 01/30/24 15:07 Urine Cocaine Screen Negative (NEG=<300) 01/30/24 15:07 U Marijuana (THC) Screen Positive (NEG=<50) A 01/30/24 15:07 Ethyl Alcohol mg/dL < 3 mg/dL (0-19.9) 01/30/24 14:25 Hospital Course: Patient admitted due to encephalopathy. It was thought to be secondary to THC Gummies that he had ingested. Also had some electrolyte abnormalities. He did improve with rest and fluids. His home medications were held during admission. Spouse and patient reported that he also had been having issues with nausea and constipation since his lap chang 2 weeks prior. Findings consistent with constipation. Was advised at discharge that he start doing MiraLAX 2-3 times a day along with a suppository or enema if needed. Patient's mental status had improved but not quite to baseline. He was requesting to go home and spouse felt comfortable taking him. He was discharged home with instructions for close PCP follow-up along with bowel cleanout.
== END 2024-02-01 12:25 | disposition home or self-care (01) ==
LOC: MED/SURG 13:10 → ER 13:10 → MED/SURG 19:25
PROVIDERS: ADMIT Internal Medicine; ATTEND Internal Medicine
DX: E83.42 Hypomagnesemia; K59.09 Other constipation; F17.200 Nicotine dependence, unspecified, uncomplicated; F12.90 Cannabis use, unspecified, uncomplicated; R40.0 Somnolence; G92.8 Other toxic encephalopathy; Z90.49 Acquired absence of other specified parts of digestive tract; R73.09 Other abnormal glucose; I10 Essential (primary) hypertension; F31.89 Other bipolar disorder; F11.20 Opioid dependence, uncomplicated; G47.53 Recurrent isolated sleep paralysis; R51.9 Headache, unspecified